=== PATIENT | female | born 1985 | race Caucasian/White ===

== ENCOUNTER 2016-12-19 05:39 | Emergency (ER) | payer OTHER ==
[~2016-12-19] VITALS: Ht 167.6 cm; Wt 78.1 kg
[~2016-12-19 05:39] MED LIST: ALBUTEROL SULF8.5 GM IH; BACTRIM,SEPT1 TABLET PO; Motrin PO; NOHOMEMEDS; PREDNISONE20 MG PO; ULTRAM50 MG PO; ZITHROMAX Z-PA250 MG PO
[2016-12-19 05:46] VITALS: BP 134/82
[2016-12-19 07:04] LABS: BASOPHIL COUNT 0.1 K/uL (0-0.1); EOSINOPHIL (%) 1.2 % (0-5); EOSINOPHIL COUNT 0.2 K/uL (0-0.3); HEMATOCRIT 42.7 % (36.0-46.0); IMMATURE GRANULOCYTE (%) 0.6 % (0.0-0.7); IMMATURE GRANULOCYTE COUNT 0.1 K/uL; LYMPHOCYTE COUNT 2.3 K/uL (1.0-2.8); MCH 30.1 PG (29.0-34.0); MCHC 33.7 G/DL (30.0-36.0); MCV 89.3 FL (83-99); MEAN PLAT.VOLUME 9.7 uM^3 (9.5-12.4); MONOCYTE (%) 6.3 % (3-12); MONOCYTE COUNT 1.1 K/uL (0-0.8); NEUTROPHIL (%) 78.7 % (45-76); PLATELET COUNT 300 K/uL (156-360); RBC DIS.WIDTH-CV 11.9 % (11.8-14.6); RED BLOOD COUNT 4.78 M/uL (3.80-5.20); WHITE BLOOD COUNT 17.7 K/uL (4.1-10.2)
[2016-12-19 07:36] LABS: CHLORIDE 109 mEq/L (99-109); POTASSIUM 4.1 mEq/L (3.7-5.4); SODIUM 141 mEq/L (136-147)
[2016-12-19 07:37] LABS: GLUCOSE 112 mg/dL (70-99)
[2016-12-19 07:39] LABS: ANION GAP 8 MEQ/L (2-14)
[2016-12-19 07:41] LABS: GFR ESTIMATE (CALCULATED) > 59 mL/min/
[2016-12-19 07:50] LABS: QUANTITATIVE HCG < 4.0 MIU/ML
[2016-12-19 08:27] LABS: UREA NITROGEN (BUN) 12 mg/dL (9-23)
[2016-12-19 14:41] LABS: TREPONEMA ANTIBODY NEGATIVE (NEGATIVE)
[2016-12-20 13:35] LABS: CHLAMYDIA TRACHOMATIS NEGATIVE; NEISSERIA GONORRHOEAE NEGATIVE
== END 2016-12-19 09:46 | disposition home or self-care (01) ==
LOC: EME → EDBD 05:39 → EME 09:46
PROVIDERS: Emergency Medicine
DX: Z04.41 Encounter for examination and observation following alleged adult rape (principal); D72.829 Elevated white blood cell count, unspecified; R11.0 Nausea; F17.200 Nicotine dependence, unspecified, uncomplicated
CPT/HCPCS: 80048; 84702; 85025; 86780; 87491; 87591; 99281; 99285; J0696